=== PATIENT | female | born 1990 | race Caucasian/White ===

== ENCOUNTER 2023-06-26 09:45 | Outpatient (RCR) | payer MEDICARE | END 2023-06-29 | disposition home or self-care (01) | LOC: WSPT | DX: G80.9 Cerebral palsy, unspecified (principal) ==

== ENCOUNTER 2023-07-21 14:15 | Outpatient (RCR) | payer MEDICARE | END 2023-07-30 | disposition home or self-care (01) | LOC: WSC | DX: G80.9 Cerebral palsy, unspecified (principal) ==